=== PATIENT | female | born 1955 ===

== ENCOUNTER 2017-01-27 13:39 | Emergency (ER) | payer MEDICARE, OTHER ==
[2017-01-27 14:02] VITALS: TEMP 98.4
[2017-01-27] MEDS ORDERED: Oxycodone/Acetaminophen 10/325 mg Tab PO STA (15:14)
--- NOTE | 2017-01-27 15:21 | ED PDOC ---
Arrival/HPI - General Chief Complaint: Back Pain Time Seen by Provider: 01/27/17 15:03 Historian: Patient - History of Present Illness Narrative History of Present Illness (Text): 01/27/17 15:18 This 61 yo female with pmh chronic back pain, presents to this emergency department complaining of exacerbation left lower back pain since last night. Patient stated pain aggravated last night when she laid down on her mattress. Patient denies fever, rash, trauma, heavy lifting, recent travel, sick contact, sob, cp, abdominal pain, urinary symptoms, vaginal bleeding, hematuria, vaginal discharge, leg swelling, /GI incontinence, saddle anesthesia, weakness, paresthesias, or dizziness. Time/Duration: Other (since last night) Context: Home Past Medical History - Provider Review Nursing Documentation Reviewed: Yes - Cardiac Hx Cardiac Disorders: No - Pulmonary Hx Asthma: Yes - Neurological Hx Neurological Disorder: No - HEENT Hx HEENT Disorder: No - Renal Hx Renal Disorder: No - Endocrine/Metabolic Hx Endocrine Disorders: No - Hematological/Oncological Hx Blood Disorders: No - Integumentary Hx Dermatological Disorder: No - Musculoskeletal/Rheumatological Hx Back Pain: Yes - Gastrointestinal Hx Gastrointestinal Disorders: No - Genitourinary/Gynecological Hx Genitourinary Disorders: No - Psychiatric Hx Anxiety: Yes Hx Substance Use: No - Surgical History Hx Appendectomy: Yes Hx Tubal Ligation: Yes Other/Comment: OVARIAN SURGERY Family/Social History - Physician Review Nursing Documentation Reviewed: Yes Family/Social History: No Known Family HX Smoking Status: Never Smoked Hx Alcohol Use: No Hx Substance Use: No Allergies/Home Meds Allergies/Adverse Reactions: Allergies Penicillins Allergy (Verified 01/27/17 13:55) RASH Review of Systems - Review of Systems Constitutional: Normal. absent: Fatigue, Weight Change, Fevers Eyes: Normal ENT: Normal. absent: Sore Throat, Rhinorrhea, Epistaxis Respiratory: Normal. absent: SOB, Cough Cardiovascular: Normal. absent: Chest Pain, Palpitations Gastrointestinal: Normal. absent: Abdominal Pain, Nausea, Vomiting Genitourinary Female: Normal. absent: Dysuria, Frequency, Hematuria Musculoskeletal: Back Pain Skin: Normal. absent: Rash, Pruritis Neurological: Normal. absent: Headache, Dizziness, Focal Weakness Endocrine: Normal Hemo/Lymphatic: Normal Psychiatric: Normal Physical Exam Vital Signs Temp Pulse Resp BP Pulse Ox 01/27/17 15:50 72 18 133/79 97 01/27/17 14:00 98.4 F 74 16 135/84 96 Temperature: Afebrile Blood Pressure: Normal Pulse: Regular Respiratory Rate: Normal Appearance: Positive for: Well-Appearing, Non-Toxic, Comfortable Pain Distress: None Mental Status: Positive for: Alert and Oriented X 3 - Systems Exam Head: Present: Atraumatic, Normocephalic Pupils: Present: PERRL Extroacular Muscles: Present: EOMI Conjunctiva: Present: Normal Mouth: Present: Moist Mucous Membranes Neck: Present: Normal Range of Motion Respiratory/Chest: Present: Clear to Auscultation, Good Air Exchange. No: Respiratory Distress, Accessory Muscle Use Cardiovascular: Present: Regular Rate and Rhythm, Normal S1, S2. No: Murmurs Abdomen: Present: Normal Bowel Sounds. No: Tenderness, Distention, Peritoneal Signs Back: Present: Normal Inspection, Paraspinal Tenderness (Mild eft paravertebral tenderness. No veretbral point tenderness. No vertebral step off.). No: CVA Tenderness, Midline Tenderness, Pain with Leg Raise Upper Extremity: Present: Normal Inspection, Normal ROM, NORMAL PULSES, Neurovascularly Intact, Capillary Refill < 2s. No: Cyanosis, Edema Lower Extremity: Present: Normal Inspection, NORMAL PULSES, Normal ROM, Neurovascularly Intact, Capillary Refill < 2 s. No: Edema, CALF TENDERNESS Neurological: Present: GCS=15, CN II-XII Intact, Speech Normal, Motor Func Grossly Intact, Normal Sensory Function, Normal Cerebellar Funct, Norm Deep Tendon Reflexes, Gait Normal, Memory Normal Skin: Present: Warm, Dry, Normal Color. No: Rashes Psychiatric: Present: Alert, Oriented x 3, Normal Insight, Normal Concentration Medical Decision Making ED Course and Treatment: 01/27/17 16:46 Re-evaluation. Patient feels better. Discussed results and plan with patient who expresses understanding. All questions answered and there is agreement with the plan to discharge home with instructions. Patient stable for discharge. Return if symptoms persist or worsen. I had a long discussion regarding the use of Opiods pain medication, which has a high risk for addiction to narcotic pain medication. Percocet can also cause constipation, drowsiness, and allergies. Do not drive or operate Machinery when using Percocet. Percocet could be use for no more than 2 days. Re-evaluation Time: 16:46 Reassessment Condition: Re-examined, Improved - Lab Interpretations Lab Results: Lab Results 01/27/17 16:30: Urine Color Yellow, Urine Appearance Clear, Urine pH 6.0, Ur Specific [place] 1.015, Urine Protein Negative, Urine Glucose (UA) Negative, Urine Ketones Negative, Urine Blood Negative, Urine Nitrate Negative, Urine Bilirubin Negative, Urine Urobilinogen 0.2, Ur Leukocyte Esterase Negative I have reviewed the lab results: Yes Interpretation: No clinic. lab abnormalty - Medication Orders Current Medication Orders: Discontinued Medications Diazepam (Valium) 5 mg PO ONCE ONE PRN Reason: Protocol Stop: 01/27/17 15:15 Last Admin: 01/27/17 16:03 Dose: 5 mg Ketorolac Tromethamine (Toradol) 15 mg IM STAT STA Stop: 01/27/17 15:15 Last Admin: 01/27/17 16:03 Dose: 15 mg Oxycodone/Acetaminophen (Percocet 10/325 Mg Tab) 1 tab PO STAT STA Stop: 01/27/17 15:15 Last Admin: 01/27/17 16:03 Dose: Not Given Non-Admin Reason: Patient Refused Disposition/Present on Arrival - Present on Arrival Any Indicators Present on Arrival: No History of DVT/PE: No History of Uncontrolled Diabetes: No Urinary Catheter: No History of Decub. Ulcer: No History Surgical Site Infection Following: None - Disposition Have Diagnosis and Disposition been Completed?: Yes Diagnosis: Back pain Disposition: HOME/ ROUTINE Disposition Time: 16:46 Patient Plan: Discharge Condition: GOOD Discharge Instructions (ExitCare): Back Pain (ED) Additional Instructions: Call private doctor for follow up visit in 1-2 days. Take medication as instructed with food. Return to emergency if symptoms worsen. Pain medication and muscle relaxer can be addictive , so do not take them for more than it is instructed. Do not drive or operate machinery when using pain medication. Prescriptions: diaZEpam [Valium] 5 mg PO DAILY #5 tab Naproxen 500 mg PO BID #14 tab oxyCODONE/Acetaminophen [Percocet 5/325 mg Tab] 1 ea PO BID PRN #5 tab PRN Reason: Pain, Severe (8-10) Referrals: Kaushal Badillo MD [Primary Care Provider] - Follow up with primary Forms: WORK NOTE
[2017-01-27 15:50] VITALS: BP 133/79; PULSE 72; RESP 18; O2SAT 97
[2017-01-27 16:44] LABS: URINE BILIRUBIN NEGATIVE (NEGATIVE); URINE BLOOD NEGATIVE (NEGATIVE); URINE GLUCOSE (UA) NEGATIVE (NEGATIVE); URINE KETONE NEGATIVE (NEGATIVE); URINE LEUKOCYTE ESTERASE NEGATIVE Leu/uL (NEGATIVE); URINE PROTEIN NEGATIVE mg/dL (<30 mg/dL); URINE UROBILINOGEN 0.2 E.U./dL (<1 E.U./dL)
[2017-01-27 16:45] LABS: URINE APPEARANCE CLEAR (CLEAR); URINE COLOR YELLOW (YELLOW)
== END 2017-01-27 17:00 | disposition home or self-care (01) ==
LOC: ED 13:39
DX: M54.5 Low back pain (principal)
CPT/HCPCS: 81003; 96372; 99282; J1885

== ENCOUNTER 2017-04-06 12:53 | Inpatient (IN) | payer MEDICARE, OTHER ==
[2017-04-06 13:06] VITALS: BMI 33.5
--- NOTE | 2017-04-06 13:39 | ED PDOC ---
Arrival/HPI - General Chief Complaint: Back Pain Time Seen by Provider: 04/06/17 13:20 Historian: Patient - History of Present Illness Narrative History of Present Illness (Text): 04/06/17 13:36 Patient is a 61 yo female, reports past history of chronic back pain, presents to ED with one week history of severe lower back pain that radiates to left groin and abdomen. She states pain worse with movements, but believes she has some urinary difficulty at times as well. Denies incontinence. Denies leg weakness. States sensation of swelling to her left abdomen and side. Denies fevers or chills. Denies vomiting or diarrhea or bloody stool. Time/Duration: 1 week Symptom Onset: Gradual Past Medical History - Infectious Disease Hx of Infectious Diseases: None - Cardiac Hx Cardiac Disorders: No - Pulmonary Hx Asthma: Yes - Neurological Hx Neurological Disorder: No - HEENT Hx HEENT Disorder: No - Renal Hx Renal Disorder: No - Endocrine/Metabolic Hx Endocrine Disorders: No - Hematological/Oncological Hx Blood Disorders: No - Integumentary Hx Dermatological Disorder: No - Musculoskeletal/Rheumatological Hx Back Pain: Yes - Gastrointestinal Hx Gastrointestinal Disorders: No - Genitourinary/Gynecological Hx Genitourinary Disorders: No - Psychiatric Hx Anxiety: Yes Hx Substance Use: No - Surgical History Hx Appendectomy: Yes Hx Tubal Ligation: Yes Other/Comment: OVARIAN SURGERY - Anesthesia Hx Anesthesia: Yes Hx Anesthesia Reactions: No Hx Malignant Hyperthermia: No Family/Social History Family/Social History: Unknown Family HX Smoking Status: Never Smoked Hx Alcohol Use: No Hx Substance Use: No Allergies/Home Meds Allergies/Adverse Reactions: Allergies Penicillins Allergy (Verified 01/27/17 13:55) RASH Home Medications: Home Meds Medication Instructions Recorded Confirmed Cyclobenzaprine [Flexeril] 1 tab PO TID 04/06/17 04/06/17 Pravastatin Sodium [Pravachol] 1 tab PO DAILY 04/06/17 04/06/17 Sulindac [Sulindac] 1 tab PO BID 04/06/17 04/06/17 Review of Systems - Review of Systems Constitutional: absent: Fevers Eyes: absent: Vision Changes Respiratory: absent: SOB Cardiovascular: absent: Chest Pain Gastrointestinal: Abdominal Pain. absent: Constipation, Diarrhea, Nausea, Vomiting, Appetite Changes Genitourinary Female: Urine Output Changes. absent: Dysuria, Frequency Musculoskeletal: Back Pain. absent: Neck Pain Skin: absent: Rash Neurological: absent: Headache, Dizziness, Focal Weakness Hemo/Lymphatic: absent: Easy Bleeding Physical Exam Vital Signs Reviewed: Yes Vital Signs Temp Pulse Resp BP Pulse Ox 04/06/17 18:03 75 18 124/71 98 04/06/17 16:35 79 18 122/74 97 04/06/17 15:00 89 18 118/79 96 04/06/17 13:10 98.7 F 93 H 18 121/82 96 Temperature: Afebrile Appearance: Positive for: Uncomfortable Pain Distress: Severe Mental Status: Positive for: Alert and Oriented X 3 - Systems Exam Head: Present: Atraumatic Mouth: Present: Moist Mucous Membranes Pharnyx: No: ERYTHEMA Nose (Internal): Present: Normal Inspection Neck: Present: Normal Range of Motion Respiratory/Chest: Present: Clear to Auscultation. No: Respiratory Distress Cardiovascular: Present: Regular Rate and Rhythm, Murmurs Abdomen: Present: Tenderness, Normal Bowel Sounds, Other (pain to left lower quadrant, with no palable inguinal masses, no erythema or rash). No: Peritoneal Signs, Hernias Back: Present: Midline Tenderness, Paraspinal Tenderness, Pain with Leg Raise. No: CVA Tenderness Upper Extremity: No: Cyanosis, Edema Lower Extremity: Present: Neurovascularly Intact. No: Edema, CALF TENDERNESS Neurological: Present: Motor Func Grossly Intact, Normal Sensory Function, Norm Deep Tendon Reflexes, Other (no saddle anesthesia). No: Gait Normal Skin: Present: Warm Psychiatric: Present: Alert, Normal Insight, Normal Concentration Medical Decision Making ED Course and Treatment: 04/06/17 13:39 On examination, patient found to have palpable lower lumbar pain, NO neuro deficits noted however. NO recent trauma, pain is reproducible and worse with movements. There is radiation to left lower quadrant, no obvious mass or hernia noted. Given pain radiating to LLQ, CT abdomen ordered. IV toradol and po valium ordered after risks/side effects reviewed with patient. She does not wish to receive Morphine due to side effects despite severe pain. NV intact currently. Treatment plan reviewed with patient. 04/06/17 16:[address] abdomen reviewed with patient. Labs reviewed. Pain is only slightly improved, still described as severe. She does not with to have IV narcotics, stating side effects. She is agreeable to Percocet and IV Valium. I am highly suspicious of lumbar disc disease. She continues to have intact strength in the lower extremities with no saddle anesthesia. She reports some increased sensitivity to left thigh/upper leg when compared to right. She has intact plantar and dorsiflexion at the ankles. She was ambulatory to the ED. I have discussed with her plan to admit patient for intractable pain, neurology consultation, MRI as pain persistent and severe. MRI currently not available, will order CT lumbar spine, consult neurology. 04/06/17 17:54 Patient with persistent pain despite iv valium and percocet, slightly improved. History reviewed with family at bedside, confirms that this severity of pain has been present for one week, and also states urinary symptoms have been present for one week, was not acute onset. Currently she is not incontinent, but concern for disc/spinal injury reviewed with patient and family, I have again discussed admission with serial exams. Dr. Carlos Maciel, neurology, consulted and present to evaluate patient in ED. Plan to admit patient to on-call physician Dr. Andujar. 04/06/17 18:13 Patient agreeable to one milligram of iv morphine and zofran for possible side effects of nausea. She reports when she last received [place] [facility] [place] felt dizzy and nauseous, thus low dose will be given initially due to persistent pain , with re-evaluation of symptoms afterwards. Case d/w Dr. Andujar, accepts admission to her service. 04/06/17 18:17 Patient at this time is unwilling to have rectal exam due to severity of pain. Indications reviewed with patient and family. Risks discussed. - Lab Interpretations Lab Results: 04/06/17 14:00 04/06/17 14:00 Lab Results 04/06/17 14:00: Sodium 141, Potassium 4.2, Chloride 101, Carbon Dioxide 26, Anion Gap 18, BUN 12, Creatinine 0.7, Est GFR ( Amer) > 60, Est GFR (Non- Af Amer) > 60, Random Glucose 105, Calcium 9.8, Total Bilirubin 1.0, AST 30, ALT 33, Alkaline Phosphatase 100, Total Protein 8.5 H, Albumin 4.6, Globulin 3.8 , Albumin/Globulin Ratio 1.2 04/06/17 14:00: WBC 4.9, RBC 4.58, Hgb 13.6, Hct 39.4, MCV 86.0, MCH 29.7, MCHC 34.5, RDW 12.4, Plt Count 307, MPV 11.0, Neutrophils % (Manual) 31 L, Lymphocytes % (Manual) 60 H, Monocytes % (Manual) 7 H, Eosinophils % (Manual) 2 , Platelet Evaluation Normal 04/06/17 13:35: Urine Color Yellow, Urine Appearance Clear, Urine pH 6.0, Ur Specific [place] 1.010, Urine Protein Negative, Urine Glucose (UA) Negative, Urine Ketones Negative, Urine Blood Negative, Urine Nitrate Negative, Urine Bilirubin Negative, Urine Urobilinogen 0.2, Ur Leukocyte Esterase Small H, Urine RBC 0 - 2, Urine WBC 0 - 2, Ur Epithelial Cells 0 - 2, Urine Bacteria Neg - RAD Interpretation Radiology Orders: 04/06/17 13:33 ABD & PELVIS W/O PO OR IV CONT [CT] Stat - Medication Orders Current Medication Orders: Discontinued Medications Diazepam (Valium) 5 mg PO STAT STA PRN Reason: Protocol Stop: 04/06/17 13:35 Last Admin: 04/06/17 13:52 Dose: 5 mg Diazepam (Valium) 2.5 mg IVP ONCE ONE PRN Reason: Protocol Stop: 04/06/17 16:27 Last Admin: 04/06/17 17:01 Dose: 2.5 mg Dexamethasone 8 mg/ Sodium (Chloride) 52 mls @ 150 mls/hr IV ONCE ONE Stop: 04/06/17 16:46 Last Admin: 04/06/17 17:16 Dose: 150 mls/hr Ketorolac Tromethamine (Toradol) 30 mg IVP ONCE ONE Stop: 04/06/17 13:35 Last Admin: 04/06/17 13:52 Dose: 30 mg Morphine Sulfate (Morphine) 1 mg IVP STAT STA Stop: 04/06/17 18:13 Ondansetron HCl (Zofran Inj) 4 mg IVP ONCE ONE Stop: 04/06/17 18:14 Oxycodone/Acetaminophen (Percocet 5/325 Mg Tab) 1 tab PO STAT STA Stop: 04/06/17 16:27 Last Admin: 04/06/17 17:01 Dose: 1 tab Disposition/Present on Arrival - Present on Arrival Any Indicators Present on Arrival: No History of DVT/PE: No History of Uncontrolled Diabetes: No Urinary Catheter: No History of Decub. Ulcer: No History Surgical Site Infection Following: None - Disposition Have Diagnosis and Disposition been Completed?: Yes Diagnosis: Intractable back pain Disposition: HOSPITALIZED Disposition Time: 16:36 Patient Plan: Admission Patient Problems: Current Active Problems Problem Status Onset Intractable back pain Acute Condition: SERIOUS
[2017-04-06 13:51] LABS: URINE BILIRUBIN NEGATIVE (NEGATIVE); URINE BLOOD NEGATIVE (NEGATIVE); URINE GLUCOSE (UA) NEGATIVE (NEGATIVE); URINE LEUKOCYTE ESTERASE SMALL Leu/uL (NEGATIVE); URINE NITRATE NEGATIVE (NEGATIVE); URINE PROTEIN NEGATIVE mg/dL (<30 mg/dL); URINE UROBILINOGEN 0.2 E.U./dL (<1 E.U./dL)
[2017-04-06 13:52] LABS: URINE APPEARANCE CLEAR (CLEAR); URINE COLOR YELLOW (YELLOW)
[2017-04-06 14:01] LABS: URINE BACTERIA NEG (NEG); URINE EPITHELIAL CELLS 0 - 2 /hpf (0-5); URINE RBC 0 - 2 /hpf (0-2); URINE WBC 0 - 2 /hpf (0-6)
[2017-04-06 14:40] LABS: HEMOGLOBIN 13.6 gm/dL (12.0-16.0); MEAN CORPUSCULAR HEMOGLOBIN 29.7 pg (25.0-35.0); MEAN CORPUSCULAR HGB CONC 34.5 g/dl (31.0-37.0); PLATELET COUNT 307 10^3/uL (120.0-450.0); RBC 4.58 10^6/uL (3.5-6.1); RED CELL DISTRIBUTION WIDTH 12.4 % (11.5-14.5); WHITE BLOOD COUNT 4.9 10^3/ul (4.5-11.0)
[2017-04-06 14:42] LABS: ALB/GLOB RATIO 1.2 (1.1-1.8); ALBUMIN 4.6 g/dL (3.0-4.8); ALT/SGPT 33 U/L (7-56); AST/SGOT 30 U/L (15-39); BLOOD UREA NITROGEN 12 mg/dL (7-21); CALCIUM 9.8 mg/dL (8.4-10.5); GFR AFRICAN-AMERICAN > 60; GFR NON-AFRICAN AMERICAN > 60
--- NOTE | 2017-04-06 15:19 | CT ---
PROCEDURE: CT Abdomen and Pelvis without intravenous contrast HISTORY: left flank pain radiating to groin COMPARISON: None. TECHNIQUE: Without contrast.. Contrast Dose: 0 Radiation dose: Total exam DLP = 1003.95 mGy-cm. This CT exam was performed using one or more of the following dose reduction techniques: Automated exposure control, adjustment of the mA and/or kV according to patient size, and/or use of iterative reconstruction technique. FINDINGS: LOWER THORAX: Unremarkable. LIVER: Unremarkable. No gross lesion or ductal dilatation. GALLBLADDER AND BILE DUCTS: Unremarkable. PANCREAS: Unremarkable. No gross lesion or ductal dilatation. SPLEEN: Unremarkable. ADRENALS: Unremarkable. No mass. KIDNEYS AND URETERS: Unremarkable. No hydronephrosis. No solid mass. No renal or ureteral calculus. VASCULATURE: Unremarkable. No aortic aneurysm. BOWEL: Unremarkable. No obstruction. No gross mural thickening. APPENDIX: Unremarkable. Normal appendix. PERITONEUM: Unremarkable. No free fluid. No free air. LYMPH NODES: Unremarkable. No enlarged lymph nodes. BLADDER: Poorly distended. No gross abnormality. REPRODUCTIVE: Unremarkable postmenopausal uterus. BONES: No acute fracture. OTHER FINDINGS: None. IMPRESSION: No evidence of urinary calculus or urinary tract obstruction. Unremarkable examination.
[2017-04-06 15:48] LABS: EOSINOPHIL 2 % (0.0-3.0); LYMPHOCYTE 60 % (22.0-35.0); MONOCYTE 7 % (1.0-6.0); NEUTROPHIL 31 % (50.0-70.0)
[2017-04-06 15:49] LABS: PLATELET ESTIMATE NORMAL (NORMAL)
[2017-04-06] MEDS ORDERED: Oxycodone/Acetaminophen 5/325 mg Tab PO STA (16:26)
[2017-04-06] MEDS ORDERED: diaZEpam 10 mg/2 ml Inj IVP ONE (16:26)
--- NOTE | 2017-04-06 18:08 | CT ---
PROCEDURE: CT Lumbar Spine without contrast HISTORY: severe low back pain COMPARISON: None. TECHNIQUE: Axial computed tomography images were obtained of the lumbar spine without the use of intravenous contrast. Coronal and sagittal reformatted images were created and reviewed. Radiation dose: Total exam DLP = 1166.61 mGy-cm. This CT exam was performed using one or more of the following dose reduction techniques: Automated exposure control, adjustment of the mA and/or kV according to patient size, and/or use of iterative reconstruction technique. FINDINGS: VERTEBRAE: Unremarkable. No fracture. Normal alignment. DISCS/SPINAL CANAL/NEURAL FORAMINA: L1-2: Unremarkable. L2-3: Unremarkable. L3-4: Unremarkable. L4-5: Mild disc bulge. No focal herniation. No spinal or neural foraminal stenosis. L5-S1: Mild disc bulge. Bilateral degenerative facet arthropathy. [id number] bilateral neural foraminal stenosis. No spinal stenosis. PARASPINAL SOFT TISSUES: Incidentally noted shotty nonspecific subcentimeter right lower quadrant mesenteric lymph nodes. OTHER FINDINGS: None. IMPRESSION: No fracture/ dislocation. Minimal bulging L4-5 and L5-S1. Mild to moderate bilateral neural foraminal stenosis L5-S1. No central spinal stenosis.
[2017-04-06] MEDS ORDERED: Morphine 2 mg/ml ISec IVP STA (18:12)
[2017-04-06] MEDS: Morphine 2 mg/ml ISec IVP PRN (22:39)
[2017-04-06] MEDS: Naproxen 550 mg Tab PO SCH (23:06)
--- NOTE | 2017-04-07 03:49 | CON ---
DATE: 04/06/2017 HISTORY OF PRESENT ILLNESS: This is a 61-year-old black female with past medical history of chronic low back pain and also suffers from anxiety and also had status post appendectomy and tubal ligation. ALLERGIES: PENICILLIN. HOME MEDICATIONS: Flexeril, Pravachol and sulindac. REVIEW OF SYSTEMS: A 10-point review of system negative except low back pain radiating to the left lower extremity. PHYSICAL EXAMINATION VITAL SIGNS: Blood pressure 121/82. HEENT: Normocephalic and atraumatic. NECK: Supple. NEUROLOGIC: Awake and oriented to self. Cranial nerve II through XII are tested. Pupils reactive. Spontaneous movements of the extremities noted except left lower extremity. Deep tendon reflexes 1+. Both plantar's are downgoing. Sensory appears intact. Cerebellar and gait was deferred. The patient was in the ER given Toradol and Valium. The patient went for CAT scan of the lumbosacral spine and abdomen, did not show any significant disc disease or only foraminal stenosis. IMPRESSION: Low back pain secondary to lumbosacral radiculopathy at L5. Continue present management. We will followup. Carlos Maciel MD
[2017-04-07] MEDS: Morphine 2 mg/ml ISec IVP PRN ×2 (04:23→11:03)
[2017-04-07 08:04] LABS: ALB/GLOB RATIO 1.2 (1.1-1.8); ALBUMIN 4.3 g/dL (3.0-4.8); ALT/SGPT 33 U/L (7-56); AST/SGOT 23 U/L (15-39); BLOOD UREA NITROGEN 17 mg/dL (7-21); CALCIUM 9.7 mg/dL (8.4-10.5); GFR AFRICAN-AMERICAN > 60; GFR NON-AFRICAN AMERICAN > 60; HDL CHOLESTEROL 43 mg/dL (29-60); LDL CHOLESTEROL 181 mg/dL (0-129)
[2017-04-07 08:23] LABS: FREE T4 0.99 ng/dL (0.78-2.19)
--- NOTE | 2017-04-07 10:08 | MRI ---
PROCEDURE: MR LUMBAR SPINE WITHOUT CONTRAST HISTORY: SEVERE BACK PAIN COMPARISON: None available. TECHNIQUE: Multiecho multiplanar sequences were performed through the lumbar spine without the use of intravenous contrast. FINDINGS: Normal lumbar lordosis. Vertebral body heights are preserved. Marrow signal unremarkable. Conus medullaris unremarkable at the level of L1 Paraspinal soft tissues are unremarkable. T12-L1: No disc herniation, spinal canal stenosis or neural foraminal narrowing. L1-2: No disc herniation, spinal canal stenosis or neural foraminal narrowing. L2-3: No disc herniation, spinal canal stenosis or neural foraminal narrowing. L3-4: No disc herniation, spinal canal stenosis or neural foraminal narrowing. L4-5: Mild diffuse disc bulge. No focal disc herniation. No spinal stenosis or neural foraminal stenosis. Bilateral degenerative facet arthropathy is noted. L5-S1: Mild disc bulge. No focal disc herniation. Mild bilateral neural foraminal stenosis. No central spinal stenosis. Bilateral degenerative facet arthropathy noted. OTHER FINDINGS: Small left S2 meningocele incidentally noted. IMPRESSION: Mild disc bulge L4-5 and L5-S1 with mild bilateral L5-S1 neural foraminal stenosis. No evidence of disc herniation. Incidental left S2 meningocele, small. Otherwise unremarkable examination.
[2017-04-07] MEDS: Naproxen 550 mg Tab PO SCH ×2 (11:04→17:44)
--- NOTE | 2017-04-07 11:35 | CARD ---
APPROVED REPORT EKG Measurement Heart [id number] <Conclusion> Normal sinus rhythm Minimal voltage criteria for LVH, may be normal variant Nonspecific T wave abnormality Abnormal ECG
--- NOTE | 2017-04-07 12:54 | CP.PCM.PN ---
<AngelitoMari child - Last Filed: 04/07/17 14:00> Subjective - Date & Time of Evaluation Date of Evaluation: 04/07/17 Time of Evaluation: 12:20 - Subjective Subjective: PGY-2 [address]y progress note for Dr maciel. Patient states the back pain has improved this morning. Patient is able to move her extremities better, although still have mild pain in the back when she moves the extremities. Patient denies headache, dizziness, denies n/v/d. Objective - Vital Signs/Intake and Output Vital Signs (last 24 hours): Temp Pulse Resp BP Pulse Ox 97.8 F 74 20 98/60 L 96 04/07/17 08:11 04/07/17 08:11 04/07/17 08:11 04/07/17 08:11 04/07/17 08:11 - Medications Medications: Current Medications Atorvastatin Calcium (Lipitor) 10 mg PO DIN SHIVAM Morphine Sulfate (Morphine) 1 mg IVP Q4H PRN PRN Reason: Pain, moderate (4-7) Last Admin: 04/07/17 11:03 Dose: 1 mg Naproxen (Anaprox Ds) 550 mg PO BID [facility] Last Admin: 04/07/17 11:04 Dose: 550 mg Pregabalin (Lyrica) 75 mg PO BID [facility] - Labs Labs: 04/07/17 06:30 - Constitutional Appears: No Acute Distress - Head Exam Head Exam: ATRAUMATIC, NORMAL INSPECTION, NORMOCEPHALIC - Eye Exam Eye Exam: EOMI, Normal appearance, PERRL Pupil Exam: NORMAL ACCOMODATION, PERRL - ENT Exam ENT Exam: Mucous Membranes Moist - Neck Exam Neck Exam: Full ROM, Normal Inspection. absent: Meningismus, Tenderness - Respiratory Exam Respiratory Exam: Clear to Ausculation Bilateral, NORMAL BREATHING PATTERN. absent: Rales, Rhonchi, Wheezes, Respiratory Distress, Stridor - Cardiovascular Exam Cardiovascular Exam: REGULAR RHYTHM, +S1, +S2 - GI/Abdominal Exam GI & Abdominal Exam: Soft, Normal Bowel Sounds. absent: Distended, Tenderness - Extremities Exam Extremities Exam: Normal Capillary Refill, Normal Inspection. absent: Pedal Edema - Back Exam Back Exam: muscle spasm, paraspinal tenderness - Neurological Exam Neurological Exam: Alert, Awake, CN II-XII Intact, Oriented x3, Reflexes Normal Neuro motor strength exam: Left Upper Extremity: 5, Right Upper Extremity: 5, Left Lower Extremity: 4, Right Lower Extremity: 4 Additional comments: Sensations to light touch intact bilateral upper and lower extremities. No pronator drift. Normal finger to nose bilaterally. Reflexes 2/4 bilateral upper and lower extremities ( PATELLA, ACHILLES TENDON, BRACHIORADIALLIS and triceps tendons). No muscle atrophy, no tremors and no muscle rigidity in b/l upper extremities. Gait exam deferred. Negative babinski. Pain in the L spine with leg raise. - Psychiatric Exam Psychiatric exam: Normal Affect, Normal Mood - Skin Skin Exam: Dry, Normal Color, Warm Assessment and Plan - Assessment and Plan (Free Text) Assessment: Patient is a 61 y/o with h/o back pain presenting with worsening intractable back pain. CT scan of the L spine: No fracture/ dislocation. Minimal bulging L4-5 and L5- S1. Mild to moderate bilateral neural foraminal stenosis L5-S1. No central spinal stenosis. MRI of the spine: Mild disc bulge L4-5 and L5-S1 with mild bilateral L5-S1 neural foraminal stenosis. No evidence of disc herniation. Incidental left S2 meningocele, small. Impression: L5, S1 radiculopathy with small meningocele. s/p decadron yesterday with improvement. Plan: - Started on lyrica 75 mg bid - Pending PT eval and treatment - follow up appointment with [facility] machine setter and/or urologist for the meningocele. - c/w naproxen prn for pain. - Patient is stable from neuro stand point. - Thank you for consulting Dr Maciel. Patient seen, examined and case discussed with Dr Maciel. <Deuce Maciel - Last Filed: 04/07/17 14:30> Objective - Vital Signs/Intake and Output Vital Signs (last 24 hours): Temp Pulse Resp BP Pulse Ox 97.8 F 74 20 98/60 L 96 04/07/17 08:11 04/07/17 08:11 04/07/17 08:11 04/07/17 08:11 04/07/17 08:11 - Medications Medications: Current Medications Atorvastatin Calcium (Lipitor) 10 mg PO DIN SHIVAM Morphine Sulfate (Morphine) 1 mg IVP Q4H PRN PRN Reason: Pain, moderate (4-7) Last Admin: 04/07/17 11:03 Dose: 1 mg Naproxen (Anaprox Ds) 550 mg PO BID [facility] Last Admin: 04/07/17 11:04 Dose: 550 mg Pregabalin (Lyrica) 75 mg PO BID [facility] - Labs Labs: 04/07/17 06:30 Attending/Attestation - Attestation I have personally seen and examined this patient.: Yes I have fully participated in the care of the patient.: Yes I have reviewed all pertinent clinical information, including history, physical exam and plan: Yes
[2017-04-07] MEDS ORDERED: Iohexol 240 (50 ml) ONE (16:44)
[2017-04-07] MEDS ORDERED: Iohexol 350 MG/100 ML VIAL ONE (18:40)
--- NOTE | 2017-04-07 20:06 | CT ---
EXAM: CT Abdomen and Pelvis With Intravenous Contrast CLINICAL HISTORY: 61 years old, female; Pain; Abdominal pain; Localized; Left lower quadrant (llq); Prior surgery; Surgery date: 6+ months; Surgery type: Tubal ligation, ap, ovarian surgery; Patient HX: Pain and swelling to left lower abdomen; Additional info: Abdominal lymphadenopathy TECHNIQUE: Axial computed tomography images of the abdomen and pelvis with intravenous contrast. This CT exam was performed using one or more of the following dose reduction techniques: automated exposure control, adjustment of the mA and/or kV according to patient size, and/or use of iterative reconstruction technique. Coronal and sagittal reformatted images were created and reviewed. CONTRAST: 93 mL of omni 350 administered intravenously. EXAM DATE/TIME: 04/07/2017 12:48 PM COMPARISON: Prior noncontrast CT abdomen and pelvis of 04/06/2017 FINDINGS: LOWER THORAX: No infiltrate seen in the lung bases. ABDOMEN: LIVER: Liver appears enlarged, and demonstrates diffuse fatty infiltration. GALLBLADDER AND BILE DUCTS: No CT evidence of acute cholecystitis. No evidence of significant biliary ductal dilatation. PANCREAS: No CT evidence of acute pancreatitis. SPLEEN: No acute abnormality of the spleen identified. ADRENALS: No acute abnormality of the adrenal glands identified. KIDNEYS AND URETERS: No acute abnormality of the kidneys identified. No evidence of significant hydrouereteronephrosis. STOMACH AND BOWEL: No acute abnormality of the stomach, small bowel or colon identified. No evidence of bowel obstruction. APPENDIX: Normal appendix is not seen, however, there are no significant inflammatory changes visualized in the expected location of the appendix to suggest appendicitis. Recommend clinical correlation. PELVIS: BLADDER: No acute abnormality of the bladder identified. REPRODUCTIVE:No acute abnormality of the reproductive organs is seen. No acute abnormality of the uterus identified. No evidence of large adnexal masses. ABDOMEN and PELVIS: INTRAPERITONEAL SPACE: No evidence of free intraperitoneal air or fluid. BONES/JOINTS: No acute fractures or other acute bony abnormality noted. SOFT TISSUES: No acute abnormality of the visualized soft tissues is seen. VASCULATURE: No evidence of abdominal aortic aneurysm. No evidence of periaortic hemorrhage. LYMPH NODES: No evidence of pathologic lymphadenopathy in the abdomen or pelvis. IMPRESSION: - No evidence of significant acute process. No definite cause for pain identified. - See above for remaining findings.
--- NOTE | 2017-04-08 00:02 | CP.PCM.HP ---
History of Present Illness - History of Present Illness History of Present Illness: Ms. Sarabia is a 61 year old female admitted with severe back pain and left leg swelling. She has degenrative disc disease and has been getting injections for nerve blocks for past few years. Ct spine showed disc bulge at L4-L5, L5- S1. No cord compression. MRI showed the same. CT spine showed abdominal lymphadenopathy. She has lymphocytosis with elevated lymphocyte count of 60 %. Ct abdomen, pelvis did not show intra-abdominal lymphadenopathy. She received steroids yesterday with relief in pain . No radiation to leg. She also has lupus. Present on Admission - Present on Admission Any Indicators Present on Admission: No Review of Systems - Constitutional Constitutional: As Per HPI - EENT Eyes: absent: As Per HPI, Blind Spots, Blurred Vision, Change in Vision, Decreased Night Vision, Diplopia, Discharge, Dry Eye, Exophthalmos, Floaters, Irritation, Itchy Eyes, Loss of Peripheral Vision, Pain, Photophobia, Requires Corrective Lenses, Sees Flashes, Spots in Vision, Tunnel Vision, Other Visual Disturbances, Loss of Vision, Other - Breasts Breasts: absent: As Per HPI, Change in Shape, Mass, Pain, Nipple Discharge, Nipple Inversion, Skin Changes, Swelling, Other - Cardiovascular Cardiovascular: absent: As Per HPI, Acrocyanosis, Chest Pain, Chest Pain at Rest , Chest Pain with Activity, Claudication, Diaphoresis, Dyspnea, Dyspnea on Exertion, Edema, Irregular Heart Rhythm, Pain Radiating to Arm/Neck/Jaw, Leg Edema, Leg Ulcers, Lightheadedness, Orthopnea, Palpitations, Paroxysmal Nocturnal Dyspnea, Pedal Edema, Radiating Pain, Rapid Heart Rate, Slow Heart Rate, Syncope, Other - Gastrointestinal Gastrointestinal: absent: As Per HPI, Abdominal Pain, Belching, Bloating, Change in Bowel Habits, Change in Stool Character, Coffee Ground Emesis, Constipation, Cramping, Diarrhea, Dyspepsia, Dysphagia, Early Satiety, Excessive Flatus, Fecal Incontinence, Heartburn, Hematemesis, Hematochezia, Loose Stools, Melena, Nausea, Odynophagia, Temesmus, Vomiting, Other - Genitourinary Genitourinary: absent: As Per HPI, Change in Urinary Stream, Difficulty Urinating, Dysuria, Flank Pain, Hematuria, Pyuria, Nocturia, Urinary Incontinence, Urinary Frequency, Urinary Hesitance, Urinary Urgency, Voiding Freq/Small Amts, Freq UTI, Hx Renal/Bladder Calculi, Hx /Renal Surgery, Bladder Distension, Other - Reproductive: Female Reproductive:Female: absent: As Per HPI, Amenorrhea, Amenorrhea/ Control, Currently Menstual, Cycle <21 Days, Cycle >35 Days, Cycle Variable, Menses 1-7 Days, Menses >/= 8 Days, Menses Variable, Cycle > 4 Weeks Between, No Menses for 6 Months, Heavy Menses, Light Menses, Normal Menses, Spotting Between Cycles , S/P Hysterectomy, Menopausal, Post Menopausal, Premenarche, Abnormal Vaginal Bleeding, Dysmenorrhea, Dyspareunia, Genital Lesions, Genital Pruritis, Pelvic Pain, Prolapse Symptoms, Sexual Dysfunction, Vaginal Discharge, Vaginal Dryness , Vaginal Odor, Vaginal Pruritis, Other - Musculoskeletal Musculoskeletal: As Per HPI - Integumentary Integumentary: absent: As Per HPI, Acne, Alopecia, Bleeding Lesions, Change in Hair, Change in Nails, Change in Pigmentation, Changing Lesions, Dry Skin, Erythema, Furuncle, Hirsutism, Lesions, New Lesions, Non-Healing Lesions, Photosensitivity, Pruritus, Rash, Skin Pain, Skin Ulcer, Sores, Striae, Swelling , Unusual Bruising, Wounds, Jaundice, Other - Neurological Neurological: absent: As Per HPI, Abnormal Gait, Abnormal Hearing, Abnormal Movements, Abnormal Speech, Behavioral Changes, Burning Sensations, Confusion, Convulsions, Disequilibrium, Dizziness, Numbness, Focal Weakness, Frequent Falls , Headaches, Lack of Coordination, Loss of Vision, Memory Loss, Paresthesias, Radicular Pain, Restless Legs, Sensory Deficit, Syncope, Tingling, Tremor, Vertigo, Weakness, Other Visual Disturbances, Other - Psychiatric Psychiatric: absent: As Per HPI, Abnormal Sleep Pattern, Anhedonia, Anxiety, Auditory Hallucinations, Behavioral Changes, Change in Appetite, Change in Libido, Confusion, Depression, Difficulty Concentrating, Hallucinations, Homicidal Ideation, Hopelessness, Irritability, Memory Loss, Mood Swings, Panic Attacks, Paranoia, Suicidal Ideation, Visual Hallucinations, Tactile Hallucinations, Other - Endocrine Endocrine: absent: As Per HPI, Change in Body Appearance, Change in Libido, Cold Intolorance, Deepening of Voice, Excessive Sweating, Fatigue, Flushing, Heat Intolorance, Increase in Ring/Shoe/Hat Size, Palpitations, Polydipsia, Polyphagia, Polyuria, Other - Hematologic/Lymphatic Hematologic: As Per HPI Past Patient History - Infectious Disease Hx of Infectious Diseases: None - Past Medical History & Family History Past Medical History?: Yes Past Family History: Reviewed and not pertinent - Past Social History Smoking Status: Never Smoked - CARDIAC Hx Cardiac Disorders: Yes Hx Hypercholesterolemia: Yes - PULMONARY Hx Respiratory Disorders: Yes Hx Asthma: Yes - NEUROLOGICAL Hx Neurological Disorder: No - HEENT Hx HEENT Problems: No - RENAL Hx Chronic Kidney Disease: No - ENDOCRINE/METABOLIC Hx Endocrine Disorders: No - HEMATOLOGICAL/ONCOLOGICAL Hx Blood Disorders: No - INTEGUMENTARY Hx Dermatological Problems: No - MUSCULOSKELETAL/RHEUMATOLOGICAL Hx Musculoskeletal Disorders: Yes Hx Back Pain: Yes Hx Falls: No - GASTROINTESTINAL Hx Gastrointestinal Disorders: No - GENITOURINARY/GYNECOLOGICAL Hx Genitourinary Disorders: No - PSYCHIATRIC Hx Psychophysiologic Disorder: Yes Hx Anxiety: Yes - SURGICAL HISTORY Hx Surgeries: Yes Hx Appendectomy: Yes Other/Comment: tubal ligation - ANESTHESIA Hx Anesthesia: Yes Hx Anesthesia Reactions: No Hx Malignant Hyperthermia: No Meds Allergies/Adverse Reactions: Allergies Allergy/AdvReac Type Severity Reaction Status Date / Time Penicillins Allergy RASH Verified 01/27/17 13:55 Physical Exam - Constitutional Appears: Well, Non-toxic - Head Exam Head Exam: ATRAUMATIC, NORMAL INSPECTION, NORMOCEPHALIC - Eye Exam Eye Exam: Normal appearance Pupil Exam: NORMAL ACCOMODATION - ENT Exam ENT Exam: Mucous Membranes Moist, Normal Exam - Neck Exam Neck exam: Positive for: Normal Inspection - Respiratory Exam Respiratory Exam: Clear to Auscultation Bilateral, NORMAL BREATHING PATTERN - Cardiovascular Exam Cardiovascular Exam: REGULAR RHYTHM, +S1, +S2 - GI/Abdominal Exam GI & Abdominal Exam: Normal Bowel Sounds, Soft - Extremities Exam Extremities exam: Positive for: normal inspection - Back Exam Back exam: NORMAL INSPECTION - Neurological Exam Neurological exam: Alert, CN II-XII Intact, Normal Gait, Oriented x3, Reflexes Normal - Skin Skin Exam: Normal Color, Warm Results - Vital Signs Recent Vital Signs: Last Vital Signs Temp 98.1 F 04/07/17 16:25 Pulse 79 04/07/17 16:25 Resp 18 04/07/17 16:25 BP 118/69 04/07/17 16:25 Pulse Ox 95 04/07/17 16:25 - Labs Result Diagrams: 04/06/17 14:00 04/07/17 06:30 Labs: Laboratory Results - last 24 hr 04/07/17 04/07/17 06:30 06:30 Sodium 138 Potassium 4.7 Chloride 102 Carbon Dioxide 25 Anion Gap 16 BUN 17 Creatinine 0.7 Est GFR ( Amer) > 60 Est GFR (Non-Af Amer) > 60 Random Glucose 127 H Calcium 9.7 Total Bilirubin 0.8 AST 23 ALT 33 Alkaline Phosphatase 92 Total Protein 7.7 Albumin 4.3 Globulin 3.5 Albumin/Globulin Ratio 1.2 Triglycerides 89 Cholesterol 262 H LDL Cholesterol Direct 181 H HDL Cholesterol 43 Free T4 0.99 TSH 3rd Generation 0.74 Assessment & Plan - Assessment and Plan (Free Text) Assessment: 1. Back pain 2. degenrative disc disease 3. Disc bulge L4-5, L5-S1 4. Lymphocytosis 5. Lupus Plan : Neuro consulted. Note reviewed. pain consult with DR. Felipe requested. No cord compression. MRI reviewed. CT abdomen no lymphadenopathy. Multiple myeloma need to be ruled out. work up can be done as out patient. Lymphocytosis ; HIV serology ordered. CLL is a possible differential diagnosis. Pain control with morphine Q 4 hrs. Lyrica 75 mg BID started. - Date & Time Date: 04/08/17 Time: 14:00
[2017-04-08] MEDS: Morphine 2 mg/ml ISec IVP PRN (08:07)
[2017-04-08] MEDS: Naproxen 550 mg Tab PO SCH ×2 (09:40→18:00)
--- NOTE | 2017-04-08 13:37 | CP.PCM.PCO ---
Physician Communication Note - Physician Communication Note Physician Communication Note: GETS SOME PT & C/W LYRICA 75 MG PO BID.
--- NOTE | 2017-04-08 13:54 | PN ---
SUBJECTIVE: The patient is a 61 years old [place] female, came to emergency room because of intractable back pain. She states she was in so much pain that she could not move. She hates to come to the hospital, but nothing was relieving her. She takes sulindac, Flexeril at home with no relief. Does not have any abdominal discomfort. Does not have diarrhea and no fever or chills. No weakness or numbness in the legs. She states when she moves she gets intractable pain in the left lower back radiating towards her lower belly and the leg. She states the medication is not helping her as much. As soon as it wears off, she starts to have discomfort. PHYSICAL EXAMINATION: VITAL SIGNS: She is afebrile, pulse 76, respirations 20, blood pressure 105/69. LUNGS: Bilateral good air flow. No rhonchi or crackle. HEART: S1, S2 audible. ABDOMEN: Soft, nontender. No rebound. No guarding. NEUROLOGIC: The patient is awake and alert, able to communicate and limited mobility because of pain. LABORATORY EXAM: Spinal MRI of the LS shows mild bulging disc at L4-L5, L5-S1, and mild bilateral L5-S1 neural foraminal stenosis, no evidence of disc herniation. There is a small incidental finding of S2 meningocele. CT scan of the abdomen and pelvis is unremarkable. ASSESSMENT AND PLAN: Intractable back pain limiting her mobility. PLAN: I will add muscle relaxer, give her small dose of morphine, awaiting Dr. Felipe's input, request for physical therapy evaluation and we will make disposition and plan in a.m. Amaya Andujar MD
[2017-04-09 10:49] VITALS: BP 101/69; PULSE 68; RESP 18; TEMP 97.8; O2SAT 98
[2017-04-09] MEDS: Naproxen 550 mg Tab PO SCH (10:55)
--- NOTE | 2017-04-10 10:32 | DS ---
HISTORY OF PRESENT ILLNESS: The patient is 61 years old, seen and examined. States she feels lot better. Her back pain has improved, although not 100%. Able to ambulate. No weakness or numbness in the legs. PHYSICAL EXAMINATION: VITAL SIGNS: She is afebrile, pulse 68, respirations 18, and blood pressure 101/69. LUNGS: Bilateral fair airflow. No rhonchi or crackles. HEART: S1 and S2 audible. ABDOMEN: Soft and nontender. No rebound. No guarding. NEUROLOGIC: The patient is awake and alert. Able to ambulate now. Neurologically, she has no focal deficit. LABORATORY DATA: TSH is 0.74. Urinalysis is unremarkable. MRI of LS spine shows disk bulge at L4-L5 and L5-S1 with mild bilateral L5-S1 neuroforaminal stenosis. No evidence of disk herniation. Incidental left S2 meningocele seen. ASSESSMENT: 1. Severe intractable back pain, requiring IV narcotics. 2. Lumbosacral radiculopathy. 3. Hyperlipidemia. 4. Deconditioning and difficulty walking. PLAN: The patient will be discharged home. We will start her on Naprosyn, Flexeril and start her on Lyrica 75 twice a day, Percocet as needed. She will be followed by Dr. Felipe as an outpatient, and she will also follow up with me. She will bring all her bottles from home. She states she is on some cholesterol medication, does not know the name and the strength, we will figure out when she comes to the office later on. Amaya Andujar MD
== END 2017-04-09 15:41 | disposition home or self-care (01) | DRG 552 ==
LOC: ED 12:53 → ERH 16:16 → 5RSO 20:33
PROVIDERS: ADMIT Internal Medicine; ATTEND Internal Medicine
DX: M54.17 Radiculopathy, lumbosacral region (principal); M48.07 Spinal stenosis, lumbosacral region; E78.5 Hyperlipidemia, unspecified; D72.820 Lymphocytosis (symptomatic); R26.2 Difficulty in walking, not elsewhere classified; Q05.8 Sacral spina bifida without hydrocephalus; Z88.0 Allergy status to penicillin